=== PATIENT | male | born 2000 | race Two or more races ===

== ENCOUNTER 2024-01-25 09:25 | Outpatient (AMB) | payer MEDICAID, SELFPAY ==
--- NOTE | 2024-01-25 09:44 | MHC.OFFVIS ---
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 Patient reports his pain has been present since he was child. His pain starts in his shoulder and travels down his arm as well as a numbness sensation in his arm. States his pain comes and goes, but is more present than not. He has tried and failed PT and injections in the past. Limited ROM. Finds some relief with gabapentin. 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 He denies injury that he can recall; however, when he was about 2-3yo he was told he had an abdominal sugery, and at the time his left shoulder was placed in a certain position that dislocated the shoulder. He states most of his pain and limitations are with movement, overhead and behind his back. While sleeping at night he has some pain in the left shoulder is under him. He points to his pain being along the acromion/deltoid region. He states he has had injections and PT approx 6 years ago in [place]. He states there was no benefit to either. He states he does have good strength. [facility] Surgical History (Updated 01/25/24 @ 09:50 by MESFIN Murphy) Hx of abdominal surgery Social History (Updated 01/25/24 @ 09:51 by MESFIN Murphy) Patient Tobacco Use Status: Never used Tobacco Current occupation: right hand dominant Review of Systems Const All systems reviewed & are unremarkable except as noted in HPI and below Physical Exam Vital Signs: BMI result Body Mass Index 23.4 Const General: cooperative and no acute distress Orientation/consciousness: patient oriented x3 Resp Effort & Inspection: normal respiratory effort and able to speak in complete sentences Cardio Peripheral pulses: Peripheral pulses 2+ throughout Neuro General: patient oriented x3 Extrem Other: Left shoulder is held in a guarded position, significant protraction of the left scapula. Tenderness over the acromion and along deltoid region of the shoulder. FF to 90, ER to 40. Limited motion with abduction. Unable to perform IR, weakness with RTC strength on the left, negative savage, cross body abduction. NVI. Results Reviewed Results Reviewed: Xrays were obtained in the office today and personally reviewed by me of the left shoulder show shallow glenoid and slightly subluxed humerual head Assessment & Plan Assessment & Plan (1) Shoulder joint deformity: Code(s): M21.929 - Unspecified acquired deformity of unspecified upper arm Category: Medical Qualifiers: Laterality: left Qualified Code(s): M21.922 - Unspecified acquired deformity of left upper arm Plan Images were reviewed with Dr. Cisneros in the office today. I discussed at length with the patient the options available which include physical therapy and modifications of activity. Given that this is a significantly chronic condition in which has left him with a deformity of the left shoulder joint there are no surgical options that we have to offer him to correct this. 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 Because of this it does create a joint that only has limited functional ability. I strongly encouraged physical therapy to work on some scapular stabilization postural training and some rotator cuff strengthening exercises to see if we can help with restoring some mobility or at least correcting the dynamics of his scapula which may in turn relieve some of his pain. He is extremely hesitant on proceeding with physical therapy, stating that he has had it when he was 6 years old and gave him no relief. I tried to explain that at this time he is structurally matured and I feel as though there would be some benefits. He did request something for pain, I did give him a prescription for ibuprofen. I also put in a referral for physical therapy in case he change his mind. I also offered to refer him to another specialist in case there are other options that another provider may have more than what we could provide. At this time he is accepting the ibuprofen and has no other requests. All questions answered. Orders: Orders PT Evaluation and Treatment Today M21.922 - Unspecified acquired deformity of left upper arm XR shoulder LT min 2V Today M25.512 - Pain in left shoulder Medications: New ibuprofen 800 mg PO Q8H PRN 90 tabs 3RF pain 30 days S52.209D - Unspecified fracture of shaft of unspecified ulna, subsequent encounter for closed fracture with routine healing Coding Level of Care Code New Pt Level 4 (51747) Complex EM visit Add On G2211 Diagnoses Deformity of left shoulder joint M21.922 Laterality: left
[2024-01-25 09:52] VITALS: BMI 23.4
== END 2024-01-25 10:44 | disposition home or self-care (01) ==
PROVIDERS: PCP Registered Nurse; Visit Provider Physician Assistant
DX: M21.922 Unspecified acquired deformity of left upper arm (principal)
CPT/HCPCS: 99204

== ENCOUNTER → 2024-01-25 09:30 | Outpatient (BNV) | payer MEDICAID, SELFPAY | PROVIDERS: Visit Provider Radiology Diagnostic Radiology | DX: M25.512 Pain in left shoulder (principal) | CPT/HCPCS: 73030 ==

== ENCOUNTER 2024-01-25 14:34 | Outpatient (REF) | payer MEDICAID, SELFPAY ==
--- NOTE | ~2024-01-25 | XR_ITS ---
EXAMINATION: XR SHOULDER, LEFT CLINICAL INFORMATION: M25.512 - Pain in left shoulder COMPARISON: None available. TECHNIQUE: AP external rotation, Grashey, scapular Y, and axillary views of the left shoulder. FINDINGS: No fracture, dislocation, or suspicious bone lesion. There is normal alignment of the glenohumeral joint. No arthritic change. Minimal subluxation of the AC joint, which could represent an acute or chronic mild AC separation. Would correlate with point tenderness. Slightly downsloping lateral acromion. No loss of subacromial space. No outlet stenosis of the supraspinatus. The remainder of the imaged bones and soft tissues appear normal. XR/XR shoulder LT min 2V IMPRESSION: 1. Minimal subluxation of the AC joint, which could represent acute versus chronic mild AC separation. Would correlate with point tenderness. 2. The remainder of the examination is normal. Electronically signed by: Brett Camara MD 02/12/2024 12:33 PM [facility]
== END 2024-01-25 14:35 | disposition home or self-care (01) ==
LOC: HO.HOSX 14:34
PROVIDERS: Visit Provider Physician Assistant
DX: M21.922 Unspecified acquired deformity of left upper arm (principal)
CPT/HCPCS: 73030; 99212